=== PATIENT | male | born 1955 | race Caucasian/White ===

== ENCOUNTER 2017-03-09 08:40 | Inpatient (IN) | payer OTHER ==
[2017-03-09 10:18] VITALS: BMI 29.0
--- NOTE | 2017-03-09 11:18 | HP ---
CIWA Score - CIWA Score Nausea/Vomitin Muscle Tremors: 3 Anxiety: 3 Agitation: 3 Paroxysmal Sweats: 1-Minimal Palms Moist Orientation: 0-Oriented Tacttile Disturbances: 2-Mild Itch/Numbness/Burn Auditory Disturbances: 2-Mild Harshness/Frighten Visual Disturbances: 2-Mild Sensitivity Headache: 2-Mild CIWA-Ar Total Score: 21 Admission ROS BHS - HPI Chief Complaint: i need help to stop drinking alcohol Allergies/Adverse Reactions: Allergies Allergy/AdvReac Type Severity Reaction Status Date / Time No Known Allergies Allergy Verified 03/09/17 11:12 History of Present Illness: this 61 years old male with alcohol dependence,withdrawal symptom,last detox, last detox [facility] 12/25/15 syncope nicotine dependence longest period of sobriety 3 months Exam Limitations: No Limitations - Ebola screening Have you traveled outside of the country in the last 21 days: No Have you had contact with anyone from an Ebola affected area: No Have you been sick,other than usual withdrawal symptoms: No - Review of Systems Constitutional: Loss of Appetite, Malaise, Night Sweats, Changes in sleep, Weakness EENT: reports: Nose Congestion Respiratory: reports: No Symptoms reported Cardiac: reports: Palpitations GI: reports: Diarrhea, Nausea, Poor Appetite, Abdominal cramping : reports: No Symptoms Reported Musculoskeletal: reports: Back Pain, Muscle Pain Neuro: reports: Headache, Tremors Endocrine: reports: No Symptoms Reported Hematology: reports: No Symptoms Reported Psychiatric: reports: Judgement Intact, Mood/Affect Appropiate, Orientated x3 ( insomnia) Patient History - Patient Medical History Hx Anemia: No Hx Asthma: No Hx Chronic Obstructive Pulmonary Disease (COPD): No Hx Cancer: No Hx Cardiac Disorders: No Hx Congestive Heart Failure: No Hx Hypertension: No Hx Hypercholesterolemia: No Hx Pacemaker: No HX Cerebrovascular Accident: No Hx Seizures: No Hx Dementia: No Hx Diabetes: No Hx Gastrointestinal Disorders: No Hx Genitourinary Disorders: No Hx Sexually Transmitted Disorders: No Hx Renal Disease (ESRD): No Hx Thyroid Disease: No Hx Human Immunodeficiency Virus (HIV): No (last 2014) Hx Hepatitis C: No Hx Depression: No Hx Suicide Attempt: No Hx Bipolar Disorder: No Hx Schizophrenia: No Other Medical History: in somnia,no suicidal,no homicidal - Patient Surgical History Past Surgical History: No Hx Neurologic Surgery: No Hx Cataract Extraction: No Hx Cardiac Surgery: No Hx Lung Surgery: No Hx Breast Surgery: No Hx Breast Biopsy: No Hx Abdominal Surgery: Yes (umbililical hernia 20 years ago,s/p bilat inguinal henia repair ) Hx Appendectomy: No Hx Cholecystectomy: No Hx Genitourinary Surgery: No Hx Section: No Hx Orthopedic Surgery: No Anesthesia Reaction: No - PPD History Previous Implant?: Yes Implanted On Prior [facility] Admission?: Yes Date: 12/27/15 PPD to be Administered?: Yes - Smoking Cessation Smoking history: Current some day smoker Have you smoked in the past 12 months: Yes Aproximately how many cigarettes per day: 2 Hx Chewing Tobacco Use: No Initiated information on smoking cessation: Yes 'Breaking Loose' booklet given: 03/09/17 - Substance & Tx. History Hx Alcohol Use: Yes Hx Substance Use: No Substance Use Type: Alcohol Hx Substance Use Treatment: Yes ([facility] 12/25/15 to 12/29/15) - Substances Abused Alcohol Route: Oral Frequency: Daily Amount used: 1 pint vodka Age of first use: 14 Date of Last Use: 03/09/17 Family Disease History - Family Disease History Family Disease History: Other: Father (alcohol,) Admission Physical Exam BHS - Vital Signs Vital Signs: Vital Signs - 24 hr 03/09/17 10:16 Temperature 97 F L Pulse Rate 95 H Respiratory 19 Rate Blood Pressure 135/95 - Physical General Appearance: Yes: Moderate Distress, Tremorous, Irritable, Sweating, Anxious HEENTM: Yes: Hearing grossly Normal, Normal ENT Inspection, Pharynx Normal Respiratory: Yes: Lungs Clear, Normal Breath Sounds, No Respiratory Distress Neck: Yes: Within Normal Limits, Supple, Trachea in good position Breast: Yes: Within Normal Limits Cardiology: Yes: Within Normal Limits, Regular Rhythm, Regular Rate, S1, S2 Abdominal: Yes: Within Normal Limits, Normal Bowel Sounds, Non Tender, Flat, Soft Genitourinary: Yes: Within Normal Limits Back: Yes: Muscle Spasm Musculoskeletal: Yes: full range of Motion, Back pain, Muscle Pain Extremities: Yes: Normal Inspection, Normal Range of Motion, Tremors Neurological: Yes: grape crusher II-XII NML intact, Fully Oriented, Alert, Motor Strength 5/5 Integumentary: Yes: Dry Lymphatic: Yes: Within Normal Limits - Diagnostic (1) Alcohol dependence with uncomplicated withdrawal Current Visit: Yes Status: Acute (2) Syncope Current Visit: Yes Status: Acute (3) Anxiety Current Visit: Yes Status: Acute (4) Insomnia Current Visit: Yes Status: Acute (5) Fracture of thumb, left, closed Current Visit: Yes Status: Acute (6) History of umbilical hernia repair Current Visit: Yes Status: Acute (7) History of inguinal hernia repair Current Visit: Yes Status: Acute Cleared for Admission [facility] - Detox or Rehab [facility] Level of Care: Medically Managed Detox Regimen/Protocol: Librium [facility] Breath Alcohol Content Breath Alcohol Content: 0.166 Urine Drug Screen - Results Drug Screen Negative: Yes
[2017-03-09] MEDS ORDERED: MENTHOL/PHENOL 1 EACH UD MM PRN (11:35)
[2017-03-09] MEDS ORDERED: P-EPHED 60MG/TRIPROLIDI 2.5MG TABLET PO PRN (11:35)
[2017-03-09] MEDS ORDERED: MAGNESIUM HYDROX 2400MG/30ML ORAL SUSPENSION 30 ML CUP PO PRN (11:35)
[2017-03-09] MEDS ORDERED: hydrOXYzine PAMOATE 50 MG CAPSULE (FP) PO PRN (11:35)
[2017-03-09] MEDS ORDERED: guaiFENesin/D-METHORPHAN HB 10 ML UNIT-DOSE CUPS PO PRN (11:35)
[2017-03-09] MEDS ORDERED: chlordiazePOXIDE HCL 25 MG CAPSULE PO PRN (11:35)
[2017-03-09] MEDS ORDERED: chlordiazePOXIDE HCL 25 MG CAPSULE PO ONE (11:47)
--- NOTE | 2017-03-09 11:47 | CONSULT ---
[facility] Psychiatric Consult - Data Date of interview: 03/09/17 Admission source: [facility] Identifying data: This is 61 years old male with no psychiatric hospitalization history intoxicated with: Alcohol and Nicotine Substance Abuse History: Date: 12/27/15. PPD to be Administered?: Yes. - Smoking Cessation. Smoking history: Current some day smoker. Have you smoked in the past 12 months: Yes. Aproximately how many cigarettes per day: 2. Hx Chewing Tobacco Use: No. Initiated information on smoking cessation: Yes. ' Breaking Loose' booklet given: 03/09/17. - Substance & Tx. History. Hx Alcohol Use: Yes. Hx Substance Use: No. Substance Use Type: Alcohol. Hx Substance Use Treatment: Yes ([facility] 12/25/15 to 12/29/15) Medical History: History of Inquinal and Umbilical hernis repair, Syncope history Psychiatric History: Patient reprots anxiety issues, reprots no medications u8sage prior to admission Physical/Sexual Abuse/Trauma History: Denies Additional Comment: Observation. Detox Unit Care Protocol Mental Status Exam - Mental Status Exam Alert and Oriented to: Person Cognitive Function: Fair Patient Appearance: Well Groomed Mood: Apprehensive Affect: Mood Congruent Patient Behavior: Cooperative Speech Pattern: Appropriate Voice Loudness: Normal Thought Process: Goal Oriented Thought Disorder: Being Controlled Hallucinations: Denies Suicidal Ideation: Denies Homicidal Ideation: Denies Insight/Judgement: Fair Sleep: Difficulty falling asleep Appetite: Weight gain Muscle strength/Tone: Normal Gait/Station: Normal Additional Comments: Observation. Detox Unit Care Protocol Psychiatric Findings - Problem List ([place] 1, 2,3) (1) Alcohol dependence with uncomplicated withdrawal Current Visit: Yes Status: Acute (2) Anxiety Current Visit: Yes Status: Acute (3) EtOH dependence Current Visit: No Status: Chronic Qualifiers: Substance use status: uncomplicated Qualified Code(s): F10.20 - Alcohol dependence, uncomplicated (4) Nicotine dependence Current Visit: Yes Status: Acute (5) Alcohol-induced anxiety disorder Current Visit: Yes Status: Acute (6) Drug-induced mood disorder Current Visit: Yes Status: Suspected - Initial Treatment Plan Initial Treatment Plan: Observation. Detox Unit Care Protocol
--- NOTE | 2017-03-09 15:43 | EKG ---
Test Reason : Blood Pressure : / mmHG Vent. Rate : 076 BPM Atrial Rate : 076 BPM P-R Int : 158 ms QRS Dur : 092 ms QT Int : 384 ms P-R-T Axes : 033 -23 031 degrees QTc Int : 432 ms NORMAL SINUS RHYTHM SEPTAL INFARCT , AGE UNDETERMINED ABNORMAL ECG NO PREVIOUS ECGS AVAILABLE Confirmed by VERONICA CLIFFORD, DEE ([id number]) on 03/09/2017 3:43:34 PM Referred By: Confirmed By:DEE MARTIN MD
[2017-03-09 17:34] LABS: URINE APPEARANCE CLEAR; URINE BILIRUBIN NEGATIVE (NEGATIVE); URINE COLOR YELLOW; URINE GLUCOSE (UA) NEGATIVE (NEGATIVE); URINE KETONE NEGATIVE (NEGATIVE); URINE LEUK ESTERASE NEGATIVE (NEGATIVE); URINE NITRITE NEGATIVE (NEGATIVE); URINE UROBILINOGEN NEGATIVE E.U./dl (0.2-1.0)
[2017-03-09] MEDS: chlordiazePOXIDE HCL 25 MG CAPSULE PO SCH ×2 (17:42→22:33)
[2017-03-09 17:55] LABS: URINE BLOOD 1+ (NEGATIVE); URINE PROTEIN 2+ (NEGATIVE)
[2017-03-09 18:23] LABS: URINE HYALINE CAST 1 /lpf; URINE MUCUS FEW; URINE RBC 1 /hpf (0-3); URINE WBC 1 /hpf (3-5)
[2017-03-09] MEDS: cloNIDine HCL 0.1 MG TABLET PO PRN (21:16)
[2017-03-09] MEDS: THIAMINE HCL 100 MG TABLET (FP) PO SCH (22:33)
[2017-03-10] MEDS: chlordiazePOXIDE HCL 25 MG CAPSULE PO SCH ×4 (05:45→22:32)
[2017-03-10] MEDS: cloNIDine HCL 0.1 MG TABLET PO PRN (07:46)
[2017-03-10] MEDS: PRENATAL VITAMINS W/ FOLIC ACID TABLET (FP) PO SCH (10:04)
[2017-03-10 10:17] LABS: MCH 36.2 pg (25.7-33.7); MCHC 33.9 g/dl (32.0-35.9); MEAN CELL VOLUME 106.8 fl (80-96); MEAN PLT VOLUME 9.6 fl (7.5-11.1); PLATELET COUNT 107 K/MM3 (134-434); RDW 14.8 % (11.9-15.9); WHITE BLOOD COUNT 4.3 K/mm3 (4.0-10.0)
[2017-03-10 10:35] LABS: ANION GAP 10 (8-16); CALCIUM 8.5 mg/dL (8.5-10.1); CO2 26 mmol/L (21-32); GLUCOSE,RANDOM 158 mg/dL (74-106)
[2017-03-10 10:37] LABS: ALK PHOS 56 U/L (45-117); BILIRUBIN,TOTAL 0.5 mg/dL (0.2-1.0); COCKROFT - GAULT 98.27; CREATININE 0.9 mg/dL (0.7-1.3); SGOT/AST 147 U/L (15-37); SGPT/ALT 105 U/L (12-78); TOT PROT 7.3 g/dl (6.4-8.2)
[2017-03-10 11:37] LABS: HYPOCHROMIA 1+
--- NOTE | 2017-03-10 13:37 | PN ---
[facility] CIWA - CIWA Score Nausea/Vomitin-Mild Nausea/No Vomiting Muscle Tremors: 4-Moderate,w/Arms Extend Anxiety: 4-Mod. Anxious/Guarded Agitation: 3 Paroxysmal Sweats: 3 Orientation: 0-Oriented Tacttile Disturbances: 1-Very Mild Itch/Numbness Auditory Disturbances: 0-None Visual Disturbances: 0-None Headache: 0-None Present CIWA-Ar Total Score: 16 BHS Progress Note (SOAP) Subjective: Sweating,anxiety,tremors,interrupted sleep,restless Objective: 03/10/17 13:35 Vital Signs - 8 hr 03/10/17 03/10/17 06:45 10:37 Temperature 97.1 F L 97.0 F L Pulse Rate 97 H 104 H Respiratory 18 20 Rate Blood Pressure 155/104 108/74 Laboratory Tests 03/09/17 03/10/17 03/10/17 15:00 06:00 06:00 WBC 4.3 RBC 4.42 Hgb 16.0 D Hct 47.2 D MCV 106.8 H MCHC 33.9 RDW 14.8 Plt Count 107 L D MPV 9.6 Hypochromic-Microcytic 1+ Macrocytosis 2+ Sodium 142 Potassium 4.0 Chloride 106 Carbon Dioxide 26 Anion Gap 10 BUN 10 D Creatinine 0.9 Creat Clearance w eGFR > 60 Random Glucose 158 H D Calcium 8.5 Total Bilirubin 0.5 D AST 147 H D ALT 105 H D Alkaline Phosphatase 56 D Total Protein 7.3 Albumin 4.0 Urine Color Yellow Urine Appearance Clear Urine pH 5.0 Ur Specific [place] 1.023 Urine Protein 2+ H Urine Glucose (UA) Negative Urine Ketones Negative Urine Blood 1+ H Urine Nitrite Negative Urine Bilirubin Negative Urine Urobilinogen Negative Ur Leukocyte Esterase Negative Urine RBC 1 Urine WBC 1 Hyaline Casts 1 Urine Mucus Few RPR Titer 03/10/17 06:00 WBC RBC Hgb Hct MCV MCHC RDW Plt Count MPV Hypochromic-Microcytic Macrocytosis Sodium Potassium Chloride Carbon Dioxide Anion Gap BUN Creatinine Creat Clearance w eGFR Random Glucose Calcium Total Bilirubin AST ALT Alkaline Phosphatase Total Protein Albumin Urine Color Urine Appearance Urine pH Ur Specific [place] Urine Protein Urine Glucose (UA) Urine Ketones Urine Blood Urine Nitrite Urine Bilirubin Urine Urobilinogen Ur Leukocyte Esterase Urine RBC Urine WBC Hyaline Casts Urine Mucus RPR Titer Nonreactive labs noted Assessment: 03/10/17 13:36 Withdrawal sx. Plan: Continue detox
[2017-03-10] MEDS: THIAMINE HCL 100 MG TABLET (FP) PO SCH (22:32)
[2017-03-10] MEDS: ACETAMINOPHEN 325 MG TABLET (FP) PO PRN (22:34)
[2017-03-11] MEDS: ACETAMINOPHEN 325 MG TABLET (FP) PO PRN ×2 (06:02→17:30)
[2017-03-11] MEDS: chlordiazePOXIDE HCL 25 MG CAPSULE PO SCH ×2 (06:02→10:34)
[2017-03-11] MEDS: PRENATAL VITAMINS W/ FOLIC ACID TABLET (FP) PO SCH (10:34)
[2017-03-11] MEDS: chlordiazePOXIDE 5 MG CAPSULE PO SCH ×2 (17:28→22:28)
--- NOTE | 2017-03-11 17:35 | PN ---
S CIWA - CIWA Score Nausea/Vomitin Muscle Tremors: 3 Anxiety: 3 Agitation: 1-Slight > Activity Paroxysmal Sweats: 3 Orientation: 0-Oriented Tacttile Disturbances: 0-None Auditory Disturbances: 2-Mild Harshness/Frighten Visual Disturbances: 2-Mild Sensitivity Headache: 0-None Present CIWA-Ar Total Score: 16 BHS Progress Note (SOAP) Subjective: Sweating, Body Aches, Tremors. Objective: PT. A & O X 3. 03/11/17 17:34 Vital Signs Temperature 96.4 F L 03/11/17 14:01 Pulse Rate 102 H 03/11/17 14:01 Respiratory Rate 20 03/11/17 14:01 Blood Pressure 137/93 03/11/17 14:01 O2 Sat by Pulse Oximetry (%) Laboratory Last Values WBC 4.3 K/mm3 (4.0-10.0) 03/10/17 06:00 RBC 4.42 M/mm3 (4.00-5.60) 03/10/17 06:00 Hgb 16.0 GM/dL (11.7-16.9) D 03/10/17 06:00 Hct 47.2 % (35.4-49) D 03/10/17 06:00 MCV 106.8 fl (80-96) H 03/10/17 06:00 MCHC 33.9 g/dl (32.0-35.9) 03/10/17 06:00 RDW 14.8 % (11.9-15.9) 03/10/17 06:00 Plt Count 107 K/MM3 (134-434) L D 03/10/17 06:00 MPV 9.6 fl (7.5-11.1) 03/10/17 06:00 Hypochromic-Microcytic 1+ 03/10/17 06:00 Macrocytosis 2+ 03/10/17 06:00 Sodium 142 mmol/L (136-145) 03/10/17 06:00 Potassium 4.0 mmol/L (3.5-5.1) 03/10/17 06:00 Chloride 106 mmol/L (98-107) 03/10/17 06:00 Carbon Dioxide 26 mmol/L (21-32) 03/10/17 06:00 Anion Gap 10 (8-16) 03/10/17 06:00 BUN 10 mg/dL (7-18) D 03/10/17 06:00 Creatinine 0.9 mg/dL (0.7-1.3) 03/10/17 06:00 Creat Clearance w eGFR > 60 (>60) 03/10/17 06:00 Random Glucose 158 mg/dL (74-106) H D 03/10/17 06:00 Calcium 8.5 mg/dL (8.5-10.1) 03/10/17 06:00 Total Bilirubin 0.5 mg/dL (0.2-1.0) D 03/10/17 06:00 AST 147 U/L (15-37) H D 03/10/17 06:00 ALT 105 U/L (12-78) H D 03/10/17 06:00 Alkaline Phosphatase 56 U/L (45-117) D 03/10/17 06:00 Total Protein 7.3 g/dl (6.4-8.2) 03/10/17 06:00 Albumin 4.0 g/dl (3.4-5.0) 03/10/17 06:00 Urine Color Yellow 03/09/17 15:00 Urine Appearance Clear 03/09/17 15:00 Urine pH 5.0 (5.0-8.0) 03/09/17 15:00 Ur Specific [place] 1.023 (1.001-1.035) 03/09/17 15:00 Urine Protein 2+ (NEGATIVE) H 03/09/17 15:00 Urine Glucose (UA) Negative (NEGATIVE) 03/09/17 15:00 Urine Ketones Negative (NEGATIVE) 03/09/17 15:00 Urine Blood 1+ (NEGATIVE) H 03/09/17 15:00 Urine Nitrite Negative (NEGATIVE) 03/09/17 15:00 Urine Bilirubin Negative (NEGATIVE) 03/09/17 15:00 Urine Urobilinogen Negative E.U./dl (0.2-1.0) 03/09/17 15:00 Ur Leukocyte Esterase Negative (NEGATIVE) 03/09/17 15:00 Urine RBC 1 /hpf (0-3) 03/09/17 15:00 Urine WBC 1 /hpf (3-5) 03/09/17 15:00 Hyaline Casts 1 /lpf 03/09/17 15:00 Urine Mucus Few 03/09/17 15:00 RPR Titer Nonreactive (NONREACTIVE) 03/10/17 06:00 LABS NOTED. Assessment: 03/11/17 17:35 WITHDRAWAL SYMPTOMS. Plan: CONTINUE DETOX. BGM ACBK TOMORROW FOR ELEVATED ADMISSION RANDOM GLUCOSE LEVEL. ADVISED PATIENT TO FOLLOW-UP WITH BUS REPAIR SUPERVISOR / REHAB MEDICAL PROVIDER AFTER DISCHARGE FROM DETOX FOR GENERAL MEDICAL ASSESSMENT AND FOR ABNORMAL ADMISSION LAB VALUES.
[2017-03-11] MEDS: THIAMINE HCL 100 MG TABLET (FP) PO SCH (22:28)
[2017-03-11] MEDS: diphenhydrAMINE HCL 50 MG CAPSULE PO PRN (22:29)
[2017-03-12] MEDS: ACETAMINOPHEN 325 MG TABLET (FP) PO PRN ×2 (05:20→17:23)
[2017-03-12] MEDS: chlordiazePOXIDE 5 MG CAPSULE PO SCH ×2 (05:20→10:22)
[2017-03-12] MEDS: PRENATAL VITAMINS W/ FOLIC ACID TABLET (FP) PO SCH (10:22)
--- NOTE | 2017-03-12 12:04 | PN ---
BHS Progress Note (SOAP) Subjective: nausea, sweats, interrupted sleep, anxiety, tremors Objective: 03/12/17 12:02 Vital Signs - 8 hr 03/12/17 03/12/17 06:18 10:44 Temperature 96.1 F L 98 F Pulse Rate 103 H 100 H Respiratory 18 18 Rate Blood Pressure 137/89 137/92 Laboratory Tests 03/09/17 03/10/17 03/10/17 15:00 06:00 06:00 WBC 4.3 RBC 4.42 Hgb 16.0 D Hct 47.2 D MCV 106.8 H MCHC 33.9 RDW 14.8 Plt Count 107 L D MPV 9.6 Hypochromic-Microcytic 1+ Macrocytosis 2+ Sodium 142 Potassium 4.0 Chloride 106 Carbon Dioxide 26 Anion Gap 10 BUN 10 D Creatinine 0.9 Creat Clearance w eGFR > 60 POC Glucometer Random Glucose 158 H D Calcium 8.5 Total Bilirubin 0.5 D AST 147 H D ALT 105 H D Alkaline Phosphatase 56 D Total Protein 7.3 Albumin 4.0 Urine Color Yellow Urine Appearance Clear Urine pH 5.0 Ur Specific [place] 1.023 Urine Protein 2+ H Urine Glucose (UA) Negative Urine Ketones Negative Urine Blood 1+ H Urine Nitrite Negative Urine Bilirubin Negative Urine Urobilinogen Negative Ur Leukocyte Esterase Negative Urine RBC 1 Urine WBC 1 Hyaline Casts 1 Urine Mucus Few RPR Titer 03/10/17 03/12/17 06:00 05:22 WBC RBC Hgb Hct MCV MCHC RDW Plt Count MPV Hypochromic-Microcytic Macrocytosis Sodium Potassium Chloride Carbon Dioxide Anion Gap BUN Creatinine Creat Clearance w eGFR POC Glucometer 138 Random Glucose Calcium Total Bilirubin AST ALT Alkaline Phosphatase Total Protein Albumin Urine Color Urine Appearance Urine pH Ur Specific [place] Urine Protein Urine Glucose (UA) Urine Ketones Urine Blood Urine Nitrite Urine Bilirubin Urine Urobilinogen Ur Leukocyte Esterase Urine RBC Urine WBC Hyaline Casts Urine Mucus RPR Titer Nonreactive tachycardia, HTN, hyperglycemia, elevated lfts, macocytosis Assessment: 03/12/17 12:03 withdrawal sx Plan: cont detox, fluids, encourage ambulation, control bp
[2017-03-12] MEDS ORDERED: chlordiazePOXIDE HCL 25 MG CAPSULE PO ONE (13:00)
[2017-03-12] MEDS: chlordiazePOXIDE HCL 10 MG CAPSULE PO SCH ×2 (17:22→22:27)
[2017-03-12] MEDS: diphenhydrAMINE HCL 50 MG CAPSULE PO PRN (22:27)
[2017-03-12] MEDS: THIAMINE HCL 100 MG TABLET (FP) PO SCH (22:27)
[2017-03-13] MEDS: chlordiazePOXIDE HCL 10 MG CAPSULE PO SCH (05:53)
--- NOTE | 2017-03-13 08:43 | DS ---
[facility] Detox Discharge Summary Admission Date: 03/09/17 Discharge Date: 03/13/17 - History Present History: Alcohol Dependence Pertinent Past History: Anxiety disorder - Physical Exam Results Vital Signs: Vital Signs Temperature 96.9 F L 03/13/17 06:32 Pulse Rate 105 H 03/13/17 06:32 Respiratory Rate 18 03/13/17 06:32 Blood Pressure 125/85 03/13/17 06:32 O2 Sat by Pulse Oximetry (%) Pertinent Admission Physical Exam Findings: Withdrawal sx. Laboratory Last Values WBC 4.3 K/mm3 (4.0-10.0) 03/10/17 06:00 RBC 4.42 M/mm3 (4.00-5.60) 03/10/17 06:00 Hgb 16.0 GM/dL (11.7-16.9) D 03/10/17 06:00 Hct 47.2 % (35.4-49) D 03/10/17 06:00 MCV 106.8 fl (80-96) H 03/10/17 06:00 MCHC 33.9 g/dl (32.0-35.9) 03/10/17 06:00 RDW 14.8 % (11.9-15.9) 03/10/17 06:00 Plt Count 107 K/MM3 (134-434) L D 03/10/17 06:00 MPV 9.6 fl (7.5-11.1) 03/10/17 06:00 Hypochromic-Microcytic 1+ 03/10/17 06:00 Macrocytosis 2+ 03/10/17 06:00 Sodium 142 mmol/L (136-145) 03/10/17 06:00 Potassium 4.0 mmol/L (3.5-5.1) 03/10/17 06:00 Chloride 106 mmol/L (98-107) 03/10/17 06:00 Carbon Dioxide 26 mmol/L (21-32) 03/10/17 06:00 Anion Gap 10 (8-16) 03/10/17 06:00 BUN 10 mg/dL (7-18) D 03/10/17 06:00 Creatinine 0.9 mg/dL (0.7-1.3) 03/10/17 06:00 Creat Clearance w eGFR > 60 (>60) 03/10/17 06:00 POC Glucometer 143 UNITS (()) 03/13/17 05:54 Random Glucose 158 mg/dL (74-106) H D 03/10/17 06:00 Calcium 8.5 mg/dL (8.5-10.1) 03/10/17 06:00 Total Bilirubin 0.5 mg/dL (0.2-1.0) D 03/10/17 06:00 AST 147 U/L (15-37) H D 03/10/17 06:00 ALT 105 U/L (12-78) H D 03/10/17 06:00 Alkaline Phosphatase 56 U/L (45-117) D 03/10/17 06:00 Total Protein 7.3 g/dl (6.4-8.2) 03/10/17 06:00 Albumin 4.0 g/dl (3.4-5.0) 03/10/17 06:00 Urine Color Yellow 03/09/17 15:00 Urine Appearance Clear 03/09/17 15:00 Urine pH 5.0 (5.0-8.0) 03/09/17 15:00 Ur Specific [place] 1.023 (1.001-1.035) 03/09/17 15:00 Urine Protein 2+ (NEGATIVE) H 03/09/17 15:00 Urine Glucose (UA) Negative (NEGATIVE) 03/09/17 15:00 Urine Ketones Negative (NEGATIVE) 03/09/17 15:00 Urine Blood 1+ (NEGATIVE) H 03/09/17 15:00 Urine Nitrite Negative (NEGATIVE) 03/09/17 15:00 Urine Bilirubin Negative (NEGATIVE) 03/09/17 15:00 Urine Urobilinogen Negative E.U./dl (0.2-1.0) 03/09/17 15:00 Ur Leukocyte Esterase Negative (NEGATIVE) 03/09/17 15:00 Urine RBC 1 /hpf (0-3) 03/09/17 15:00 Urine WBC 1 /hpf (3-5) 03/09/17 15:00 Hyaline Casts 1 /lpf 03/09/17 15:00 Urine Mucus Few 03/09/17 15:00 RPR Titer Nonreactive (NONREACTIVE) 03/10/17 06:00 Labs noted - Treatment Hospital Course: Detox Protocol Followed, Detoxed Safely, Responded well, Discharged Condition Good, Rehab Referral Accepted Patient has Accepted a Rehab Referral to: [facility] [employer] [facility]. - Medication Discharge Medications: Ambulatory Orders NK [No Known Home Medication] 12/25/15 - Diagnosis (1) Alcohol dependence with uncomplicated withdrawal Current Visit: Yes Status: Acute (2) Alcohol-induced anxiety disorder Current Visit: Yes Status: Acute (3) Anxiety Current Visit: Yes Status: Acute (4) Insomnia Current Visit: Yes Status: Acute (5) Nicotine dependence Current Visit: Yes Status: Acute Qualifiers: Nicotine product type: cigarettes Substance use status: uncomplicated Qualified Code(s): F17.210 - Nicotine dependence, cigarettes, uncomplicated (6) Drug-induced mood disorder Current Visit: Yes Status: Suspected - AMA Did Patient Leave Against Medical Advice: No
[2017-03-13 09:25] VITALS: BP 131/88; PULSE 125; TEMP 97.6
== END 2017-03-13 09:24 | disposition home or self-care (01) | DRG 775 ==
LOC: YASAS 08:40 → Y3N 11:42
PROVIDERS: ADMIT Internal Medicine Addiction Medicine; ATTEND Internal Medicine Addiction Medicine
PROC: HZ2ZZZZ Detoxification Services for Substance Abuse Treatment (ICD-10-PCS; principal; 2017-03-09)
DX: F10.230 Alcohol dependence with withdrawal, uncomplicated (principal); F10.280 Alcohol dependence with alcohol-induced anxiety disorder; F17.210 Nicotine dependence, cigarettes, uncomplicated; F19.24 Other psychoactive substance dependence with psychoactive substance-induced mood disorder; F41.9 Anxiety disorder, unspecified; I10 Essential (primary) hypertension; G47.00 Insomnia, unspecified; R73.9 Hyperglycemia, unspecified; R94.5 Abnormal results of liver function studies; D75.89 Other specified diseases of blood and blood-forming organs; Z86.79 Personal history of other diseases of the circulatory system
CPT/HCPCS: 36415; 80053; 81003; 81015; 85027; 86593; 93005; 93010

== ENCOUNTER 2019-04-17 09:01 | Inpatient (IN) | payer OTHER | END 2019-04-21 11:39 | disposition home or self-care (01) | LOC: YASAS 09:01 → Y6N 09:46 ==